=== PATIENT | male | born 1940 | race Caucasian/White ===

== ENCOUNTER 2018-01-29 12:33 | Emergency (ER) | payer MEDICARE, OTHER ==
[~2018-01-29 12:33] MED LIST: AMAN50SY PO; ANTI1CAP PO; ASPI-1471 PO; ATOR20TA65 PO; ATOR40TA69 PO; CARB-126 PO; ERGO2000 PO; FURO-45 PO; GABA-549 PO; MUPI15CR2 TP; NYST15OI15 TP; OMEP-125 PO; SIMV-49 PO; SIMV10TA98 PO; SPIR25TA80 PO; TRAM-420 PO
--- NOTE | 2018-01-29 12:43 | ER Report ---
History and Physical Time Seen By MD: 12:43 HPI/ROS CHIEF COMPLAINT: Syncopal episode HISTORY OF PRESENT ILLNESS: 77-year-old male patient presents to emergency room with complaint of a syncopal episode. Patient states that he was shoveling snow this morning when he passed out. He states that he was stating there are new that he was falling, but was not able to catch himself. He states he landed on the grass. Patient states he does have swelling to the nose, abrasions to the nose, chin. He states that he's never had this happen before, however family worse to her in the room states that he did have an episode like this after drinking alcohol and was found that he had a low blood sugar. Patient denies having any pain at this time. He denies any nausea, vomiting or diarrhea. States he is not dizzy. He denies having any chest pain. REVIEW OF SYSTEMS: Respiratory: No cough, no dyspnea. Cardiovascular: No chest pain, no palpitations. Gastrointestinal: No vomiting, no abdominal pain. Musculoskeletal: No back pain. Allergies: Coded Allergies: Penicillins (Verified Allergy, Mild, RASH, 03/25/17) Home Meds Active Scripts Atorvastatin Calcium (ATORVASTATIN CALCIUM) 40 Mg Tablet, 1 TAB PO QPM, #90 TAB 1 Refill Prov:SAROJ HART DNP, OFFICE RENTAL CLERK-BC 09/05/17 Past Medical/Surgical History Patient has a past medical history of hyperlipidemia, alcohol use. Patient has surgical history of tonsillectomy. Reviewed Nurses Notes: Yes Hx Smoking: No Smoking Status: Never Smoker Hx Substance Use Disorder: No Hx Alcohol Use: Yes (couple drinks a week) Constitutional Vital Sign - Last 24 Hours 01/29/18 01/29/18 01/29/18 01/29/18 12:33 12:38 12:40 12:48 Temp 98.2 Pulse ??? 90 92 Resp 18 13 B/P (MAP) 174/91 174/91 (118) Pulse Ox 87 89 O2 Delivery Room Air 01/29/18 01/29/18 01/29/18 01/29/18 13:03 13:05 13:18 13:31 Pulse 82 ??? Resp 16 B/P (MAP) 145/93 (110) 189/110 (136) Pulse Ox 91 01/29/18 01/29/18 01/29/18/14/18 13:33 13:36 13:39 13:41 Pulse 80 Resp 18 B/P (MAP) 175/121 (139) 161/90 (113) 164/96 (118) Pulse Ox 91 01/29/18 01/29/18 01/29/18 01/29/18 13:48 13:52 13:54 13:55 Pulse 78 82 77 82 Resp 20 B/P (MAP) 175/121 (139) 161/90 (113) 164/96 (118) O2 Delivery Room Air Room Air Room Air 01/29/18 01/29/18 01/29/18 01/29/18 14:00 14:03 14:18 14:30 Pulse 85 ??? Resp 17 B/P (MAP) 167/88 (114) 155/87 (109) Pulse Ox 90 01/29/18 01/29/18 01/29/18 01/29/18 14:35 14:50 15:00 15:05 Pulse 79 76 69 Resp 19 12 17 B/P (MAP) 152/96 (114) Pulse Ox 90 90 92 01/29/18 01/29/18 01/29/18 01/29/18 15:20 15:30 15:35 15:50 Pulse 77 75 63 Resp 11 10 18 B/P (MAP) 153/93 (113) Pulse Ox 92 90 93 01/29/18 01/29/18 01/29/18 01/29/18 16:02 16:05 16:20 16:30 Pulse 80 76 Resp 19 19 B/P (MAP) 161/87 (111) 151/90 (110) Pulse Ox 91 90 01/29/18 01/29/18 01/29/18 01/29/18 16:35 16:50 17:00 17:05 Pulse 72 84 78 Resp 22 9 21 B/P (MAP) 168/93 (118) Pulse Ox 92 92 89 01/29/18 01/29/18 01/29/18 01/29/18 17:20 17:30 17:35 17:50 Pulse 82 80 ??? Resp 21 15 B/P (MAP) 145/85 (105) Pulse Ox 91 90 01/29/18 01/29/18 18:05 18:26 Temp 98.7 Pulse ??? Physical Exam General Appearance: The patient is alert, has no immediate need for airway protection and no current signs of toxicity. ENT: Tympanic membranes are pearly-gonzalez, auditory canals are patent, patient does have bleeding from his lip, abrasion to the chin. Respiratory: Chest is non tender, lungs are clear to auscultation. Cardiac: regular rate and rhythm Gastrointestinal: Abdomen is soft and non tender, no masses, bowel sounds normal. Musculoskeletal: Neck: Neck is supple and non tender. Extremities have full range of motion and are non tender. Skin: No rashes or lesions. DIFFERENTIAL DIAGNOSIS: After history and physical exam differential diagnosis was considered for syncope including but not limited to vasovagal syncope, arrhythmia, dehydration, and blood loss. Medical Decision Making Data Points Result Diagram: 01/29/18 1300 01/29/18 1300 Laboratory Hematology Test 01/29/18 12:59 01/29/18 13:00 01/29/18 14:18 01/29/18 15:48 Whole Blood Glucose 95 mg/DL (75-110) Red Blood Count 4.53 M/uL (4.00-5.60) Mean Corpuscular Volume 95.1 fL (80.0-96.0) Mean Corpuscular Hemoglobin 34.2 pg (26.0-33.0) Mean Corpuscular Hemoglobin Concent 35.9 g/dL (32.0-36.0) Red Cell Distribution Width 13.8 % (11.5-14.5) Mean Platelet Volume 7.8 fL (7.2-11.1) Neutrophils (%) (Auto) 71.0 % (39.4-72.5) Lymphocytes (%) (Auto) 19.4 % (17.6-49.6) Monocytes (%) (Auto) 8.0 % (4.1-12.4) Eosinophils (%) (Auto) 0.8 % (0.4-6.7) Basophils (%) (Auto) 0.8 % (0.3-1.4) Nucleated RBC Relative Count (auto) 0.0 /100WBC Neutrophils # (Auto) 3.5 K/uL (2.0-7.4) Lymphocytes # (Auto) 1.0 K/uL (1.3-3.6) Monocytes # (Auto) 0.4 K/uL (0.3-1.0) Eosinophils # (Auto) 0.0 K/uL (0.0-0.5) Basophils # (Auto) 0.0 K/uL (0.0-0.1) Nucleated RBC Absolute Count (auto) 0.00 K/uL Sodium Level 144 mmol/L (137-145) Potassium Level 3.7 mmol/L (3.5-5.0) Chloride Level 105 mmol/L (98-107) Carbon Dioxide Level 29 mmol/L (22-30) Blood Urea Nitrogen 20 mg/dl (9-21) Creatinine 1.10 mg/dl (0.66-1.25) Glomerular Filtration Rate Calc > 60.0 Random Glucose 101 mg/dl (75-110) Calcium Level 9.8 mg/dl (8.4-10.2) Total Bilirubin 1.5 mg/dl (0.2-1.3) Aspartate Amino Transf (AST/SGOT) 24 U/L (0-35) Alanine Aminotransferase (ALT/SGPT) 38 U/L (0-56) Alkaline Phosphatase 93 U/L (0-126) Total Protein 6.8 g/dl (6.3-8.2) Albumin 3.9 g/dl (3.5-5.0) Urine Color Yellow Urine Clarity Clear Urine pH 7.0 pH (4.8-9.5) Urine Specific [place] 1.013 Urine Protein Negative mg/dL (NEGATIVE) Urine Glucose (UA) Negative mg/dL (NEGATIVE) Urine Ketones Negative mg/dL (NEGATIVE) Urine Blood Negative (NEGATIVE) Urine Nitrite Negative (NEGATIVE) Urine Bilirubin Negative (NEGATIVE) Urine Urobilinogen Negative mg/dL (0.2-1.9) Urine Leukocyte Esterase Negative (NEGATIVE) Urine RBC <1 /HPF (0-2/HPF) Urine WBC 1 /HPF (0-5/HPF) Urine Squamous Epithelial Cells None /LPF (</=FEW) Urine Bacteria Negative /HPF (NONE-FEW) Urine Mucus Few /HPF (NONE-FEW) Troponin I 0.032 ng/ml Chemistry Test 01/29/18 12:59 01/29/18 13:00 01/29/18 14:18 01/29/18 15:48 Whole Blood Glucose 95 mg/DL (75-110) White Blood Count 4.9 k/uL (4.5-11.0) Red Blood Count 4.53 M/uL (4.00-5.60) Hemoglobin 15.5 g/dL (14.0-18.0) Hematocrit 43.1 % (42.0-52.0) Mean Corpuscular Volume 95.1 fL (80.0-96.0) Mean Corpuscular Hemoglobin 34.2 pg (26.0-33.0) Mean Corpuscular Hemoglobin Concent 35.9 g/dL (32.0-36.0) Red Cell Distribution Width 13.8 % (11.5-14.5) Platelet Count 252 K/uL (150-450) Mean Platelet Volume 7.8 fL (7.2-11.1) Neutrophils (%) (Auto) 71.0 % (39.4-72.5) Lymphocytes (%) (Auto) 19.4 % (17.6-49.6) Monocytes (%) (Auto) 8.0 % (4.1-12.4) Eosinophils (%) (Auto) 0.8 % (0.4-6.7) Basophils (%) (Auto) 0.8 % (0.3-1.4) Nucleated RBC Relative Count (auto) 0.0 /100WBC Neutrophils # (Auto) 3.5 K/uL (2.0-7.4) Lymphocytes # (Auto) 1.0 K/uL (1.3-3.6) Monocytes # (Auto) 0.4 K/uL (0.3-1.0) Eosinophils # (Auto) 0.0 K/uL (0.0-0.5) Basophils # (Auto) 0.0 K/uL (0.0-0.1) Nucleated RBC Absolute Count (auto) 0.00 K/uL Glomerular Filtration Rate Calc > 60.0 Calcium Level 9.8 mg/dl (8.4-10.2) Total Bilirubin 1.5 mg/dl (0.2-1.3) Aspartate Amino Transf (AST/SGOT) 24 U/L (0-35) Alanine Aminotransferase (ALT/SGPT) 38 U/L (0-56) Alkaline Phosphatase 93 U/L (0-126) Total Protein 6.8 g/dl (6.3-8.2) Albumin 3.9 g/dl (3.5-5.0) Urine Color Yellow Urine Clarity Clear Urine pH 7.0 pH (4.8-9.5) Urine Specific [place] 1.013 Urine Protein Negative mg/dL (NEGATIVE) Urine Glucose (UA) Negative mg/dL (NEGATIVE) Urine Ketones Negative mg/dL (NEGATIVE) Urine Blood Negative (NEGATIVE) Urine Nitrite Negative (NEGATIVE) Urine Bilirubin Negative (NEGATIVE) Urine Urobilinogen Negative mg/dL (0.2-1.9) Urine Leukocyte Esterase Negative (NEGATIVE) Urine RBC <1 /HPF (0-2/HPF) Urine WBC 1 /HPF (0-5/HPF) Urine Squamous Epithelial Cells None /LPF (</=FEW) Urine Bacteria Negative /HPF (NONE-FEW) Urine Mucus Few /HPF (NONE-FEW) Troponin I 0.032 ng/ml Urinalysis Test 01/29/18 14:18 Urine Color Yellow Urine Clarity Clear Urine pH 7.0 pH (4.8-9.5) Urine Specific [place] 1.013 Urine Protein Negative mg/dL (NEGATIVE) Urine Glucose (UA) Negative mg/dL (NEGATIVE) Urine Ketones Negative mg/dL (NEGATIVE) Urine Blood Negative (NEGATIVE) Urine Nitrite Negative (NEGATIVE) Urine Bilirubin Negative (NEGATIVE) Urine Urobilinogen Negative mg/dL (0.2-1.9) Urine Leukocyte Esterase Negative (NEGATIVE) Urine RBC <1 /HPF (0-2/HPF) Urine WBC 1 /HPF (0-5/HPF) Urine Squamous Epithelial Cells None /LPF (</=FEW) Urine Bacteria Negative /HPF (NONE-FEW) Urine Mucus Few /HPF (NONE-FEW) EKG/Imaging EKG Interpretation 12 lead EKG: Rhythm: normal sinus rhythm [place]: normal QRS: normal ST segments: normal Imaging CT Cervical Spine Indication: Syncope. Comparison: None available. Technique: Axial CT imaging of the cervical spine was performed. 2-D sagittal and coronal CT reformats were also obtained. One of the following dose optimization techniques was utilized in the performance of this exam: automated exposure control; adjustment of the mA and/or kV according to the patient's size; or use of an iterative reconstruction technique. Specific details can be referenced in the facility's radiology CT e xam operational policy. Findings: The vertebral bodies are aligned. No fracture or facet dislocation. There is diffuse mild/moderate degenerative changes more prominent in lower cervical spine. These include disc space narrowing, endplate changes, osteophytes and facet arthropathy. Mild vacuum disc phenomena. No bony canal stenosis. Multilevel neural foramina narrowing. The endplates are maintained. No obvious disc herniation. Prevertebral soft tissues and surrounding soft tissues are unremarkable. Impression: 1. No acute osseous or acute alignment abnormality of the cervical spine. Degenerative changes. Report Dictated By: Jordy Kang at 01/29/2018 1:57 PM Report E-Signed By: Jordy Kang at 01/29/2018 2:02 PM 2 VIEWS CHEST INDICATION: Syncope. COMPARISON: CT chest on 03/25/2017. Chest x-ray on 03/25/2017. FINDINGS: Cardiomediastinal silhouette and pulmonary vessels within normal limits. There is no focal infiltrate or lobar consolidation. There is no pneumothorax or pleural effusion. No nodule. Scarring seen left lingula. Eventration right hemidiaphragm, unchanged. The upper abdomen is unremarkable. No acute bony abnormality. IMPRESSION: 1. No acute cardiopulmonary process. Report Dictated By: Jordy Kang at 01/29/2018 1:43 PM Report E-Signed By: Jordy Kang at 01/29/2018 1:46 PM EXAMINATION: CT facial bones without IV contrast HISTORY: Syncope. COMPARISON: None. TECHNIQUE: Axial images were obtained from the superior aspect of the orbits through the inferior aspect of mandible. Coronal and sagittal reformatted images were obtained from the axial source data. No IV contrast was administered. One of the following dose optimization techniques was utilized in the performance of this exam: Automated exposure control; adjustment of the mA and/or kV according to the patient's size; or use of an iterative reconstruction technique. Specific details can be referenced in the facility's radiology CT exam operational policy. FINDINGS: No fractures. Orbits are intact. Soft tissues orbits are symmetric without focal normality. Sinuses and mastoids visualized are clear. Ostiomeatal complexes are patent. Surrounding soft tissues are unremarkable. The visualized brain shows senescent changes without acute abnormality. Visualized cervical spine shows degenerative changes without acute abnormality. IMPRESSION: No evidence of acute facial bone fracture. Report Dictated By: Jordy Kang at 01/29/2018 2:02 PM Report E-Signed By: Jordy Kang at 01/29/2018 2:[address] Head without contrast Indication: Syncope. Comparison: None available Technique: Axial CT images were obtained through the brain from the skull base to the vertex without administration of IV contrast. Reformatted coronal and sagittal images were also obtained. One of the following dose optimization techniques was utilized in the performance of this exam: automated exposure control; adjustment of the mA and/or kV according to the patient's size; or use of an iterative reconstruction technique. Specific details can be referenced in the facility's radiology CT exam operational policy. Findings: No evidence of mass, mass effect, or midline shift. No acute intracranial hemorrhage or acute territorial infarction. No extra-axial fluid collection or hydrocephalus. Age-related cerebral atrophy. Periventricular white matter ischemic changes consistent small vessel disease. Gonzalez/white matter differentiation appears normal. Mild bilateral internal carotid artery calcifications. Bony structures show no fractures or lesions. The visualized paranasal sinuses and mastoid air cells are clear. IMPRESSION: 1. Senescent changes without acute abnormality. Report Dictated By: Jordy Kang at 01/29/2018 1:46 PM Report E-Signed By: Jordy Kang at 01/29/2018 1:51 PM ED Course/Re-evaluation ED Course Patient was admitted in exam room, history and physical were obtained. Differential diagnoses were considered. On examination lungs are clear, heart is regular, abdomen is soft and nontender. Patient does have abrasions to his chin, nose. He does have a wound on the inside of his mouth. A CBC, CMP, troponin, EKG, chest x-ray, CT scan of the head, cervical spine and facial bones were done. Lab results were unremarkable, patient did have a negative troponin at 0.021. With her not being undetectable I did choose to go ahead and repeat that after 3 hours. The repeat troponin came back at 0.032, which was also negative. The CT scan of the head, cervical spine and facial bones were also negative. Chest x-ray was normal. I discussed findings with patient. I informed her the repeat troponin. I did discuss the case with Dr. Mart at [facility], neurology, who felt patient should have a Holter monitor done make sure there is not any cardiac arrhythmias. He also encouraged the patient not to drive until he is symptom free for 3 months. Also encouraged follow-up with neurology. I discussed the findings with the patient and his sister. We'll go ahead and discharge him home at this time. He is to follow-up in the ER if condition worsens. He is to follow-up with his primary care provider next week. I did give the patient information to see [facility] neurology in [place]. Patient and his sister verbalized understanding and agreement with plan. Decision to Disposition Date: Jan 29, 2018 Decision to Disposition Time: 17:24 Depart Departure Latest Vital Signs Vital Signs Date Time Temp Pulse Resp B/P (MAP) Pulse Ox O2 Delivery O2 Flow Rate FiO2 01/29/18 18:26 98.7 01/29/18 18:05 ??? 01/29/18 17:35 15 90 01/29/18 17:30 145/85 (105) 01/29/18 13:55 Room Air Impression: Primary Impression: Syncope Condition: Improved Disposition: HOME OR SELF-CARE Referrals: LOGAN BUSH MD (PCP) Patient Instructions: Syncope (ED) Additional Instructions: Follow up with Saroj Hart this week. Get plenty of rest. Increase fluid intake. Follow up with Neurology: [facility] [address] [place], [place] No Driving until you have not had a symptom for 3 months or cleared by Neurology. Problem Qualifiers Primary Impression: Syncope Syncope type: unspecified Qualified Codes: R55 - Syncope and collapse LUIS MARINELLI Jan 29, 2018 12:43
[2018-01-29] MEDS ORDERED: NS(*) 0.9% 500 ML BAG 500 ML IV ONE (12:51)
--- NOTE | 2018-01-29 13:05 | EKG ---
FACILITY: [facility] [place] PATIENT NAME: ROBI MCGRATH : [id number] MR: [id number] V: [id number] EXAM DATE: ORDERING PHYSICIAN: LUIS MARINELLI TECHNOLOGIST: Test Reason : syncope Blood Pressure : / mmHG Vent. Rate : 084 BPM Atrial Rate : 084 BPM P-R Int : 208 ms QRS Dur : 096 ms QT Int : 356 ms P-R-T Axes : 036 002 030 degrees QTc Int : 420 ms Normal sinus rhythm with 1st degree AV block Normal ECG When compared with ECG of 25-MAR-2017 21:02, No significant change was found except now with a 1st degree AV block Confirmed by CHALO MCGILL ([id number]) on 01/29/2018 5:32:15 PM Referred By: Confirmed By:CHALO MCGILL
[2018-01-29 13:18] LABS: PLATELET COUNT, AUTOMATED 252 K/uL (150-450)
[2018-01-29] MEDS ORDERED: DIPHTH/TETANUS/ACEL. PERTUSSIS IM ONLY ONE (13:40)
--- NOTE | 2018-01-29 13:51 | RADIOLOGY IMAGING REPORT ---
FACILITY: [facility] PATIENT NAME: Matt Herron : 1940 MR: [id number] V: [id number] EXAM DATE: ORDERING PHYSICIAN: LUIS MARINELLI TECHNOLOGIST: Location: [facility] [place] Patient: Matt Herron : 1940 Visit/Account:[id number] Date of Sevice: 01/29/2018 2 VIEWS CHEST INDICATION: Syncope. COMPARISON: CT chest on 03/25/2017. Chest x-ray on 03/25/2017. FINDINGS: Cardiomediastinal silhouette and pulmonary vessels within normal limits. There is no focal infiltrate or lobar consolidation. There is no pneumothorax or pleural effusion. No nodule. Scarring seen left lingula. Eventration right hemidiaphragm, unchanged. The upper abdomen is unremarkable. No acute bony abnorm ality. IMPRESSION: 1. No acute cardiopulmonary process. Report Dictated By: Jordy Kang at 01/29/2018 1:43 PM Report E-Signed By: Jordy Kang at 01/29/2018 1:46 PM WSN:[email or web address]
--- NOTE | 2018-01-29 13:54 | RADIOLOGY IMAGING REPORT ---
FACILITY: [facility] PATIENT NAME: Matt Herron : 1940 MR: [id number] V: [id number] EXAM DATE: ORDERING PHYSICIAN: LUIS MARINELLI TECHNOLOGIST: Location: [facility] [place] Patient: Matt Herron : 1940 Visit/Account:[id number] Date of Sevice: 01/29/2018 CT Head without contrast Indication: Syncope. Comparison: None available Technique: Axial CT images were obtained through the brain from the skull base to the vertex without administration of IV contrast. Reformatted coronal and sagittal images were also obtained. One of the following dose optimization techniques was utilized in the performance of this exam: autom ated exposure control; adjustment of the mA and/or kV according to the patient's size; or use of an i terative reconstruction technique. Specific details can be referenced in the facility's radiology CT exam operational policy. Findings: No evidence of mass, mass effect, or midline shift. No acute intracranial hemorrhage or acute territorial infarction. No extra-axial fluid collection or hydrocephalus. Age-related cerebral atrophy. Periventricular whi te matter ischemic changes consistent small vessel disease. Gonzalez/white matter differentiation appear s normal. Mild bilateral internal carotid artery calcifications. Bony structures show no fractures or lesions. The visualized paranasal sinuses and mastoid air cells are clear. IMPRESSION: 1. Senescent changes without acute abnormality. Report Dictated By: Jordy Kang at 01/29/2018 1:46 PM Report E-Signed By: Jordy Kang at 01/29/2018 1:51 PM WSN:[email or web address]
--- NOTE | 2018-01-29 14:07 | RADIOLOGY IMAGING REPORT ---
FACILITY: [facility] PATIENT NAME: Matt Herron : 1940 MR: [id number] V: [id number] EXAM DATE: ORDERING PHYSICIAN: LUIS MARINELLI TECHNOLOGIST: Location: [facility] Patient: Matt Herron : 1940 Visit/Account:[id number] Date of Sevice: 01/29/2018 CT Cervical Spine Indication: Syncope. Comparison: None available. Technique: Axial CT imaging of the cervical spine was performed. 2-D sagittal and coronal CT reforma ts were also obtained. One of the following dose optimization techniques was utilized in the performance of this exam: autom ated exposure control; adjustment of the mA and/or kV according to the patient's size; or use of an i terative reconstruction technique. Specific details can be referenced in the facility's radiology CT exam operational policy. Findings: The vertebral bodies are aligned. No fracture or facet dislocation. There is diffuse mild/moderate degenerative changes more prominent in lower cervical spine. These include disc space narrowing, end plate changes, osteophytes and facet arthropathy. Mild vacuum disc phenomena. No bony canal stenosi s. Multilevel neural foramina narrowing. The endplates are maintained. No obvious disc herniation. Prevertebral soft tissues and surrounding soft tissues are unremarkable. Impression: 1. No acute osseous or acute alignment abnormality of the cervical spine. Degenerative changes. Report Dictated By: Jordy Kang at 01/29/2018 1:57 PM Report E-Signed By: Jordy Kang at 01/29/2018 2:02 PM WSN:[email or web address]
--- NOTE | 2018-01-29 14:09 | RADIOLOGY IMAGING REPORT ---
[facility] PATIENT NAME: Matt Herron : 1940 MR: [id number] V: [id number] EXAM DATE: ORDERING PHYSICIAN: LUIS MARINELLI TECHNOLOGIST: Location: [facility] Patient: Matt Herron : 1940 Visit/Account:[id number] Date of Sevice: 01/29/2018 EXAMINATION: CT facial bones without IV contrast HISTORY: Syncope. COMPARISON: None. TECHNIQUE: Axial images were obtained from the superior aspect of the orbits through the inferior as pect of mandible. Coronal and sagittal reformatted images were obtained from the axial source data. N o IV contrast was administered. One of the following dose optimization techniques was utilized in the performance of this exam: Autom ated exposure control; adjustment of the mA and/or kV according to the patient's size; or use of an i terative reconstruction technique. Specific details can be referenced in the facility's radiology C T exam operational policy. FINDINGS: No fractures. Orbits are intact. Soft tissues orbits are symmetric without focal normality. Sinuse s and mastoids visualized are clear. Ostiomeatal complexes are patent. Surrounding soft tissues are unremarkable. The visualized brain shows senescent changes without acute abnormality. Visualized c ervical spine shows degenerative changes without acute abnormality. IMPRESSION: No evidence of acute facial bone fracture. Report Dictated By: Jordy Kang at 01/29/2018 2:02 PM Report E-Signed By: Jordy Kang at 01/29/2018 2:06 PM WSN:[email or web address]
[2018-01-29 17:30] VITALS: BP 145/85
--- NOTE | 2018-01-31 22:18 | RT HOLTER TEST ---
FACILITY: [facility] PATIENT NAME: ROBI MCGRATH : [id number] MR: [id number] V: [id number] EXAM DATE: ORDERING PHYSICIAN: LUIS MARINELLI TECHNOLOGIST: Philly Ricardo-up date: 2018-01-29 17:59:00 Duration: 47:59:00 Test Indications: SYNCOPE Medications: NONE LISTED. NO DIARY ENTRIES [id number] QRS complexes 27 Ventricular ectopics which represent <1 % of total QRS comp. 51 Supraventricular ectopics which represent <1 % of total QRS comp. * Paced QRS complexes which represent % of total QRS comp. VENTRICULAR ECTOPY 27 Isolated 0 Bigeminal Cycles 0 Couplets 0 Runs 0 Beats in Runs * Beats LONGEST at * BPM at :: -- * Beats FASTEST at * BPM at :: -- SUPRAVENTRICULAR ECTOPY 40 Isolated 1 Couplets 2 Runs 9 Beats in Runs 6 Beats LONGEST at 124 BPM at 01:29:04 2018-01-31 6 Beats FASTEST at 124 BPM at 01:29:04 2018-01-31 HEART RATES 42 MIN at 09:29:31 2018-01-31 69 AVG 122 MAX at 19:04:04 2018-01-29 LONGEST RR 1.816 secs at 05:38:35 2018-01-31 S-T LEVELS Channel 1 -12.800 mm MIN at 17:59:00 2018-01-29 -12.800 mm MAX at 17:59:00 2018-01-29 Channel 2 -12.800 mm MIN at 17:59:00 2018-01-29 -12.800 mm MAX at 17:59:00 2018-01-29 Channel 3 -12.800 mm MIN at 17:59:00 2018-01-29 -12.800 mm MAX at 17:59:00 2018-01-29 Sinus rhythm Premature ventricular complexes Premature supraventricular complexes Confirmed by JERICHO BRYANT ([id number]) on 01/31/2018 10:18:44 PM Referred By: Jennifer MARINELLI Overread By: JERICHO BRYANT
== END 2018-01-29 18:10 | disposition home or self-care (01) ==
LOC: ER 12:59
DX: R55 Syncope and collapse (principal); I44.0 Atrioventricular block, first degree; W18.30XA Fall on same level, unspecified, initial encounter; Y93.H1 Activity, digging, shoveling and raking
CPT/HCPCS: 36415; 36416; 70450; 70486; 71046; 72125; 81001; 82948; 84484; 85025; 90471; 90715; 93005; 93225; 96360; 99285; J7040; 82040; 82247; 82310; 82374; 82435; 82565; 82947; 84075; 84132; 84155; 84295; 84450; 84460; 84520